=== PATIENT | female | born 1990 | race Caucasian/White ===

== ENCOUNTER → 2019-08-21 | Outpatient (CLI) | payer OTHER ==
--- NOTE | 2019-08-21 19:57 | MR ---
EXAMINATION TYPE: MR pituitary wo/w con DATE OF EXAM: 08/21/2019 COMPARISON: NONE HISTORY: Hyperprolactinemia TECHNIQUE: Multiplanar, multisequence images of the pituitary gland is performed without and with IV contrast, u tilizing 7 mL intravenous Gadavist . FINDINGS: There is a subtle with abnormally enhancing (enhancing less than the background normal pitu itary gland) oval lesion of the left pituitary gland measuring 0.5 x 0.4 x 0.5 cm slightly expanding the left pituitary gland seen on postcontrast sagittal image 7 and coronal images 10 and 9. This abut s the left cavernous sinus but does not surround the left cavernous sinus. Remainder the pituitary gl and is unremarkable. Pituitary stalk is prominent although not abnormally thickened measuring 2.9 mm. Remaining visualized portions of the brain are grossly unremarkable however only very limited images are obtained given the small focal [id number]. IMPRESSION: Pituitary gland lesion measures 0.5 cm and is most likely related to a microadenoma in this patient w ith history of hyperprolactinemia.
== END | disposition home or self-care (01) ==
LOC: RADMRIMAIN 12:53
PROVIDERS: ATTEND Obstetrics & Gynecology
DX: E23.6 Other disorders of pituitary gland (principal); E22.1 Hyperprolactinemia
CPT/HCPCS: 70553; A9585

== ENCOUNTER → 2020-07-11 | Outpatient (CLI) | payer OTHER ==
--- NOTE | 2020-07-11 07:44 | MR ---
EXAMINATION TYPE: MR lumbar spine wo con DATE OF EXAM: 07/11/2020 COMPARISON: NONE HISTORY: DDD, Pain Center of Back and down both Legs, swelling, gets difficult to walk TECHNIQUE: Multiplanar, multisequence imaging of the lumbar spine is performed without IV contrast. FINDINGS: Sagittal images of the lumbar spine show vertebral body height to appear satisfactory. The alignment is straightened. Multilevel disc desiccation with sparing of L5-S1 level. Mild disc space n arrowing at L1-L2 level. Annular tear L4-L5 level. The conus medullaris is normal in position and si gnal ending mid T12 level. Mild multilevel anterior spurring. The bone marrow signal intensity is wi thin normal limits. Axial images show T12-L1 level to appear within normal limits. Axial images at L1-L2 level show mild broad disc bulge with tiny central disc protrusion component mi nimally effacing the anterior thecal sac. Patent bilateral neural foramina. Axial images at L2-L3 level show annular tear with broad-based posterior disc protrusion mildly facin g anterior thecal sac. Mild facet arthropathy bilaterally. Axial images at L3-L4 level shows annular tear with central disc protrusion effacing anterior thecal sac. Patent bilateral neural foramina. Axial images at the L4-L5 level shows central disc protrusion and annular tear effacing anterior thec al sac. Mild facet arthropathy and ligamentum flavum hypertrophy effacing posterolateral thecal sac. Mild bilateral neural foraminal narrowing. Axial images at L5-S1 level show mild facet arthropathy bilaterally. Spinal canal preserved. The bila teral neural foramina are patent. Paraspinal muscle bulk is preserved. IMPRESSION: Loss of normal lumbar lordosis with multilevel degenerative changes somewhat pronounced f or patient's chronologic age as detailed above.
== END | disposition home or self-care (01) ==
LOC: RADMRIMAIN 06:53
PROVIDERS: ATTEND Family Medicine
DX: M47.816 Spondylosis without myelopathy or radiculopathy, lumbar region (principal); M43.8X6 Other specified deforming dorsopathies, lumbar region
CPT/HCPCS: 72148